=== PATIENT | female | born 1975 | race Caucasian/White ===

== ENCOUNTER 2018-09-04 05:02 | Day surgery (SDC) | payer OTHER ==
[2018-09-01 14:13] VITALS: BMI 27.6
[2018-09-04] MEDS ORDERED: PROPOFOL 20 ML ONE ×4 (07:19→07:43)
[2018-09-04] MEDS ORDERED: MIDAZOLAM HCL 2 MG/2 ML SINGLE DOSE VIAL ONE (07:19)
--- NOTE | 2018-09-04 07:31 | HP ---
Admitting History and Physical - Admission Chief Complaint: Prolonged and heavy menses History of Present Illness: 43 yo Para 2 with h/o prolonged and heavy menses, is pre op for endometrial ablation. History Source: Patient Limitations to Obtaining History: No Limitations - Past Medical History ...LMP: 07/26/18 ...: No ...Para: 2 - Past Surgical History Past Surgical History: Yes: - Smoking History Smoking history: Never smoked Have you smoked in the past 12 months: No - Alcohol/Substance Use Hx Alcohol Use: Yes (social) History of Substance Use: reports: None - Social History Usual Living Arrangement: Yes: With Child History of Recent Travel: No Home Medications - Allergies Allergies/Adverse Reactions: Allergies Allergy/AdvReac Type Severity Reaction Status Date / Time Penicillins Allergy Severe Swelling Verified 09/04/18 06:57 - Home Medications Home Medications: Ambulatory Orders metFORMIN HCL [Glucophage -] 500 mg PO BID #0 01/21/14 Ibuprofen 600 mg PO QID PRN #20 tablet 08/14/16 Atorvastatin Ca [Lipitor] 10 mg PO HS 09/01/18 Review of Systems - Review of Systems Constitutional: reports: No Symptoms Eyes: reports: No Symptoms HENT: reports: No Symptoms Neck: reports: No Symptoms Cardiovascular: reports: No Symptoms Respiratory: reports: No Symptoms Gastrointestinal: reports: No Symptoms Genitourinary: reports: No Symptoms Breasts: reports: No Symptoms Reported Musculoskeletal: reports: No Symptoms Integumentary: reports: No Symptoms Neurological: reports: No Symptoms Endocrine: reports: No Symptoms Hematology/Lymphatic: reports: No Symptoms Psychiatric: reports: No Symptoms Pain Intensity: 0 Physical Examination Vital Signs: Vital Signs Temperature 98.6 F 09/04/18 06:57 Pulse Rate 88 09/04/18 06:57 Respiratory Rate 20 09/04/18 06:57 Blood Pressure 142/89 09/04/18 06:57 O2 Sat by Pulse Oximetry (%) 100 09/04/18 06:54 Constitutional: Yes: Well Nourished Eyes: Yes: Conjunctiva Clear Neck: Yes: Supple Cardiovascular: Yes: Regular Rate and Rhythm Respiratory: Yes: Regular Gastrointestinal: Yes: Normal Bowel Sounds Breast(s): Yes: WNL Integumentary: Yes: WNL Neurological: Yes: Alert, Oriented ...Motor Strength: WNL Psychiatric: Yes: Alert, Oriented Problem List - Problems (1) Menorrhagia Code(s): N92.0 - EXCESSIVE AND FREQUENT MENSTRUATION WITH REGULAR CYCLE Assessment/Plan Menorrhagia Pre op for Hysteroscopic endometrial ablation Consent signed Anesthesia to see patient
[2018-09-04] MEDS ORDERED: SUCCINYLCHOLINE CHLORIDE 200 MG/10 ML VIAL ONE (07:44)
[2018-09-04] MEDS ORDERED: DEXAMETHASONE SOD PHOSPHATE 4 MG/1 ML VIAL ONE (08:04)
[2018-09-04] MEDS ORDERED: KETOROLAC TROMETHAMINE 30 MG/1 ML VIAL ONE (09:04)
--- NOTE | 2018-09-04 09:05 | OP ---
Operative Note - Note: Operative Date: 09/04/18 Pre-Operative Diagnosis: Menorrhagia Operation: Hysteroscopic endometrial ablation attempt Post-Operative Diagnosis: Same as Pre-op Surgeon: Pattie Pichardo Estimated Blood Loss (mls): 20 Operative Report Dictated: Yes
[2018-09-04] MEDS ORDERED: oxyCODONE HCL 5 MG TABLET PO PRN (09:17)
[2018-09-04] MEDS ORDERED: ACETAMINOPHEN 1000 MG/100 ML VIAL (NON FORMULARY) IVPB ONE (09:18)
[2018-09-04] MEDS ORDERED: ACETAMINOPHEN INJECTION 100 ML IVPB ONE (09:19)
--- NOTE | 2018-09-04 09:32 | OP ---
DATE OF OPERATION: 09/04/2018 PREOPERATIVE DIAGNOSIS: Menorrhagia. POSTOPERATIVE DIAGNOSIS: Menorrhagia. PROCEDURE: Hysteroscopic endometrial ablation attempt. SURGEON: Pattie Pichardo MD ANESTHESIA: General. ESTIMATED BLOOD LOSS: 20 mL. Patient was taken to the operating room where general anesthesia was administered. Patient was then placed in lithotomy position. She was then prepped and draped in proper sterile fashion. A weighted speculum was placed in the vagina. The anterior lip of the cervix was grasped with a single-toothed tenaculum then the machine was then activated, and hysteroscopy started. After the hysteroscope was placed in the endometrial canal and polyp noted, and both ostia were visualized, we proceeded with sealing of the cervix by using and 2 wet gauze on the posterior vaginal wall. Then, the button was pressed to initiate ablation, but after several attempts, the procedure had started due to improper sealing. We tried to place Vaseline gauze in the vaginal and on the sheath of the hysteroscope but we unsuccessful in maintaining a proper seal to complete the ablation after several attempts. The procedure was aborted. Patient was taken out of lithotomy position. She was then taken to PACU in stable condition. PATTIE PICHARDO M.D. STEFANIE/[id number]
[2018-09-04] MEDS ORDERED: oxyCODONE HCL 5 MG TABLET ONE (10:04)
[2018-09-04 10:12] VITALS: TEMP 97.6
[2018-09-04 12:29] VITALS: BP 115/77; PULSE 70
== END 2018-09-04 12:35 | disposition home or self-care (01) ==
LOC: JASU-SURG 05:02
PROVIDERS: ATTEND Obstetrics & Gynecology
PROC: 0U5B8ZZ Destruction of Endometrium, Via Natural or Artificial Opening Endoscopic (ICD-10-PCS; principal; 2018-09-04 07:30)
DX: N92.0 Excessive and frequent menstruation with regular cycle (principal); N84.0 Polyp of corpus uteri; Z53.8 Procedure and treatment not carried out for other reasons
CPT/HCPCS: 82962; 94760; J0131

== ENCOUNTER 2019-01-19 10:28 | Emergency (ER) | payer OTHER ==
[2019-01-19 10:51] VITALS: BMI 31.1
--- NOTE | 2019-01-19 11:28 | PDOC ---
Attending Attestation - Resident Resident Name: Craig Liar - ED Attending Attestation I have performed the following: I have examined & evaluated the patient, The case was reviewed & discussed with the resident, I agree w/resident's findings & plan, Exceptions are as noted - HPI HPI: 01/19/19 11:29 43y F hx of DM, HL, fibroids s/p endometrial failed ablation, pending hysterectomy with Dr. Wesley. Pt has had excessive vaginal bleeding since Dec , requiring more than >10 pads / day. endorses lightheadedness and generalized weakness. Pt enodres blood clots, foul oders, fever/chills, dysuria, diarrhea. Pt endorses crampy abd pain cw her fibroids. - Physicial Exam PE: general: well appearing, nad heent: atraumatic, mmm card: rrr, no mrg pulm: cta b/l ext: no edema abd: soft nontender - Medical Decision Making suspect fibroid bleeding the pts CBC noted for anemia to 7.5 the pt does exhibit some mild symptoms of anemia such sa feeling lightheaded when standing no associated cp, or significant grant no active bleedin anant pelvic exam currently discussed risks and benefit of obtaining a blood transfusion (would remove some of the sypmts of lighteheaded/sob) at the risk of tranfusions such as infection/ transfusoin reaction pt declines at this time dw dr. wesley - will plan for outpatient management of fibroids/hysterectomy
[2019-01-19 11:38] LABS: BASO % 0.7 % (0-2.0); EOS % 1.9 % (0-4.5); HEMATOCRIT 22.6 % (32.4-45.2); HEMOGLOBIN 7.5 GM/dL (10.7-15.3); LYMPH % 41.8 % (8-40); MCH 28.6 pg (25.7-33.7); MCHC 33.3 g/dl (32.0-36.0); MEAN CELL VOLUME 85.9 fl (80-96); MEAN PLT VOLUME 8.4 fl (7.5-11.1); MONO % 6.5 % (3.8-10.2); NEUT % 49.1 % (42.8-82.8); PLATELET COUNT 365 K/MM3 (134-434); RBC 2.63 M/mm3 (3.60-5.2); RDW 20.1 % (11.6-15.6); WHITE BLOOD COUNT 6.3 K/mm3 (4.0-10.0)
--- NOTE | 2019-01-19 11:43 | PDOC ---
History of Present Illness - General Chief Complaint: Vaginal Bleeding Stated Complaint: VAGNIAL BLEEDING Time Seen by Provider: 01/19/19 11:00 History Source: Patient Exam Limitations: No Limitations - History of Present Illness Initial Comments: 01/19/19 11:20 43 yo female pmh of DM, HLD, fibroids (s/p failed endometrial ablation Aug 2018 ) pending Hysterectomy (Dr. Pichardo) presents to the ED for excessive vaginal bleeding. Pt states since the beginning of her period Jan 03 she has used greater than 15 pads per day, passing clots and normal colored blood with associated generalized weakness, dizziness and abnormal pain described as similar to past fibroids. Pt admits to heavy cycles in the pst but this is the worst it has been. Denies F/C/N/V, back pain, Cp, SOB Past History - Past Medical History Allergies/Adverse Reactions: Allergies Allergy/AdvReac Type Severity Reaction Status Date / Time Penicillins Allergy Severe Swelling Verified 09/04/18 06:57 Home Medications: Ambulatory Orders metFORMIN HCL [Glucophage -] 500 mg PO BID #0 01/21/14 Ibuprofen 600 mg PO QID PRN #20 tablet 08/14/16 Atorvastatin Ca [Lipitor] 10 mg PO HS 09/01/18 Anemia: Yes Diabetes: Yes Hypercholesterolemia: Yes - Surgical History Cholecystectomy: Yes Orthopedic Surgery: Yes (rt. knee meniscectomy) - Reproductive History (#): 3 Para: 2 Spontaneous : 1 - Immunization History Immunization Up to Date: Yes - Suicide/Smoking/Psychosocial Hx Smoking History: Never smoked Have you smoked in the past 12 months: No Hx Alcohol Use: No Drug/Substance Use Hx: No Substance Use Type: None Hx Substance Use Treatment: No Review of Systems - Review of Systems Constitutional: Yes: Other (generlized weakness). No: Chills, Fever Respiratory: No: Shortness of Breath Cardiac (ROS): No: Chest Pain ABD/GI: Yes: Other (adbmits to abdominal pain from past fibroids. Bloody vaginal Discharge). No: Nausea, Vomiting : No: Burning, Dysuria Musculoskeletal: No: Back Pain Integumentary: No: Pallor Neurological: Yes: Dizziness. No: Numbness, Paresthesia *Physical Exam - Vital Signs Last Vital Signs Temp Pulse Resp BP Pulse Ox 98.2 F 98 H 16 149/79 100 01/19/19 10:48 01/19/19 10:48 01/19/19 10:48 01/19/19 10:48 01/19/19 10:48 - Physical Exam General Appearance: Yes: Nourished, Appropriately Dressed. No: Apparent Distress HEENT: positive: EOMI Respiratory/Chest: positive: Lungs Clear, Normal Breath Sounds Cardiovascular: positive: Regular Rhythm, Regular Rate, S1, S2. negative: Edema , JVD, Murmur Vascular Pulses: Dorsalis-Pedis (R): 4+, Doralis-Pedis (L): 4+ Female Pelvic Exam: positive: normal external exam, cervical os closed, normal adnexa. negative: CMT, discharge, vaginal bleeding Gastrointestinal/Abdominal: positive: Normal Bowel Sounds, Flat, Soft, Tenderness (suprapubic ). negative: Pulsatile Mass, Distended, Guarding, Rebound Musculoskeletal: positive: Normal Inspection Extremity: positive: Normal Capillary Refill, Normal Inspection Integumentary: positive: Normal Color, Dry, Warm Neurologic: positive: Fully Oriented, Alert, Normal Mood/Affect, Normal Response , Motor Strength 5/5 Moderate Sedation - Procedure Monitoring Vital Signs: Procedure Monitoring Vital Signs Temperature 98.2 F 01/19/19 10:48 Pulse Rate 98 H 01/19/19 10:48 Respiratory Rate 16 01/19/19 10:48 Blood Pressure 149/79 01/19/19 10:48 O2 Sat by Pulse Oximetry (%) 100 01/19/19 10:48 ED Treatment Course - LABORATORY CBC & Chemistry Diagram: 01/19/19 11:14 01/19/19 11:14 - RADIOLOGY Radiology Studies Ordered: Category Date Time Status TRANSVAGINAL ULTRASOUND US [US] Stat Ultrasound 01/19/19 11:10 Ordered Medical Decision Making - Medical Decision Making 43 yo female pmh Fibroids and failed uterine embolization presents for excessive vaginal bleeding, dizziness. Vitals WNL Pelvic shows no CMT, no adnexal pain or mass, no blood CBC shows h/h 7.5 with a 2 point drop since Aug 2018 01/19/19 13:[address] Pichardo, discussed case and labs. States pt can continue taking hormone therapy and follow up in clinic tmr. Due to minor symptoms, no blood on pelvic, 06/27 functional, pt does not require blood transfusion at this time. 01/19/19 13:48 transvaginal US shows uterine fibroid and small right ovarian cyst. 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 Continue taking the prescribed hormone therapy. Return to the ER for new or concerning symptoms including but not limited to: severe weakness/dizziness/ loss of consciousness, excessive bleeding that does not stop, high fevers, severe abdominal pain. Thank you - Post Discharge Activity Forms/Work/School Notes: Back to Work
[2019-01-19 11:56] LABS: INR 1.01 (0.83-1.09); PROTHROMBIN TIME (PATIENT) 11.9 SEC (9.7-13.0)
[2019-01-19 11:58] LABS: ACTIVATED PTT 28.7 SECONDS (25.2-36.5)
[2019-01-19 12:01] LABS: ALBUMIN 3.3 g/dl (3.4-5.0); ALK PHOS 57 U/L (45-117); ANION GAP 7 MMOL/L (8-16); BILIRUBIN,TOTAL 0.2 mg/dL (0.2-1); BLOOD UREA NITROGEN 6 mg/dL (7-18); CALCIUM 8.2 mg/dL (8.5-10.1); CHLORIDE 102 mmol/L (98-107); CO2 26 mmol/L (21-32); CREATININE 0.6 mg/dL (0.55-1.3); GLUCOSE,RANDOM 201 mg/dL (74-106); POTASSIUM 4.1 mmol/L (3.5-5.1); SGOT/AST 9 U/L (15-37); SGPT/ALT 30 U/L (13-61); SODIUM 135 mmol/L (136-145); TOT PROT 6.4 g/dl (6.4-8.2)
[2019-01-19] MEDS ORDERED: SODIUM CHLORIDE 1,000 ML IV STA (13:28)
[2019-01-19 14:37] VITALS: BP 117/64; PULSE 87; TEMP 97.9
== END 2019-01-19 14:55 | disposition home or self-care (01) ==
LOC: JER 10:28
PROC: 3E0337Z Introduction of Electrolytic and Water Balance Substance into Peripheral Vein, Percutaneous Approach (ICD-10-PCS; principal; 2019-01-19)
DX: N93.8 Other specified abnormal uterine and vaginal bleeding (principal); D25.9 Leiomyoma of uterus, unspecified; N83.201 Unspecified ovarian cyst, right side; D64.9 Anemia, unspecified; E11.9 Type 2 diabetes mellitus without complications; Z79.84 Long term (current) use of oral hypoglycemic drugs; E78.5 Hyperlipidemia, unspecified
CPT/HCPCS: 36415; 76830-TC; 80053; 84702; 85025; 85610; 85730; 86850; 86900; 86901; 96360; 99283-25; J7030

== ENCOUNTER 2019-02-03 05:29 | Inpatient (IN) | payer OTHER ==
[2019-01-30 17:06] VITALS: BMI 30.1
[2019-02-03] MEDS ORDERED: DEXAMETHASONE SOD PHOSPHATE/PF 10 MG/ML SDV ONE (07:13)
[2019-02-03] MEDS ORDERED: MIDAZOLAM HCL 2 MG/2 ML SINGLE DOSE VIAL ONE ×2 (07:14)
[2019-02-03] MEDS ORDERED: ROPIVACAINE HCL 0.5% 30ML VIAL ONE (07:14)
--- NOTE | 2019-02-03 07:44 | HP ---
Admitting History and Physical - Admission Chief Complaint: Prolonged and heavy menses History of Present Illness: 43 yo Para 2 with h/o prolonged and heavy menses, is pre op for abdominal hysterectomy. She had a previous failed endometrial ablation attempt. History Source: Patient Limitations to Obtaining History: No Limitations - Past Medical History ...LMP: 01/03/19 ...: No ...Para: 2 - Past Surgical History Past Surgical History: Yes: - Smoking History Smoking history: Never smoked Have you smoked in the past 12 months: No - Alcohol/Substance Use Hx Alcohol Use: Yes (SOCIAL) History of Substance Use: reports: None - Social History Usual Living Arrangement: Yes: With Child History of Recent Travel: No Home Medications - Allergies Allergies/Adverse Reactions: Allergies Allergy/AdvReac Type Severity Reaction Status Date / Time Penicillins Allergy Severe Swelling Verified 02/03/19 07:07 - Home Medications Home Medications: Ambulatory Orders metFORMIN HCL [Glucophage -] 500 mg PO BID #0 01/21/14 Ibuprofen 600 mg PO QID PRN #20 tablet 08/14/16 Atorvastatin Ca [Lipitor] 20 mg PO HS 09/01/18 Ascorbic Acid [Vitamin C] 500 mg PO DAILY 01/30/19 Iron 18 mg PO BID 01/30/19 Omeprazole 20 mg PO DAILY 01/30/19 Family Disease History - Family Disease History Family History: Unremarkable Review of Systems - Review of Systems Constitutional: reports: No Symptoms Eyes: reports: No Symptoms HENT: reports: No Symptoms Neck: reports: No Symptoms Cardiovascular: reports: No Symptoms Respiratory: reports: No Symptoms Gastrointestinal: reports: No Symptoms Genitourinary: reports: Vaginal Bleeding Breasts: reports: No Symptoms Reported Integumentary: reports: No Symptoms Neurological: reports: No Symptoms Endocrine: reports: No Symptoms Hematology/Lymphatic: reports: No Symptoms Psychiatric: reports: No Symptoms Pain Intensity: 0 Physical Examination Constitutional: Yes: Well Nourished Eyes: Yes: Conjunctiva Clear HENT: Yes: Atraumatic Neck: Yes: Supple Cardiovascular: Yes: Regular Rate and Rhythm Respiratory: Yes: Regular Gastrointestinal: Yes: Normal Bowel Sounds Assessment/Plan Menorrhagia Anemia Pre op for hysterectomy Consent signed Anesthesia to see patient
[2019-02-03] MEDS ORDERED: PROPOFOL 20 ML ONE ×3 (08:12)
[2019-02-03] MEDS ORDERED: fentaNYL CITRATE 250 MCG/5 ML VIAL ONE (08:12)
[2019-02-03] MEDS ORDERED: ROCURONIUM BROMIDE 50 MG/5 ML VIAL ONE (08:13)
[2019-02-03] MEDS ORDERED: SUCCINYLCHOLINE CHLORIDE 200 MG/10 ML VIAL ONE (08:13)
[2019-02-03] MEDS ORDERED: CLINDAMYCIN PHOSPHATE 900 MG/6 ML VIAL IVPB ONE (08:20)
[2019-02-03] MEDS ORDERED: LIDOCAINE HCL/PF 2% SDV 5ML VIAL ONE (08:39)
[2019-02-03] MEDS ORDERED: DEXAMETHASONE SOD PHOSPHATE 4 MG/1 ML VIAL ONE (08:39)
[2019-02-03] MEDS ORDERED: NEOSTIGMINE METHYLSULFATE 0.5 MG/ML - 10 ML MDV ONE (08:48)
[2019-02-03] MEDS ORDERED: PROMETHAZINE HCL 25 MG/1 ML VIAL IVPB PRN (09:13)
[2019-02-03] MEDS ORDERED: MORPHINE SULFATE 2 MG/ML VIAL IVPUSH PRN (09:13)
[2019-02-03] MEDS ORDERED: ONDANSETRON 4 MG/2 ML VIAL IVPUSH PRN (09:13)
[2019-02-03] MEDS ORDERED: ACETAMINOPHEN INJECTION 100 ML IVPB ONE (09:19)
[2019-02-03] MEDS ORDERED: KETOROLAC TROMETHAMINE 30 MG/1 ML VIAL ONE (09:19)
[2019-02-03] MEDS ORDERED: oxyCODONE HCL 5 MG TABLET PO PRN (09:59)
--- NOTE | 2019-02-03 09:59 | OP ---
Operative Note - Note: Operative Date: 02/03/19 Pre-Operative Diagnosis: Menorrhagia Operation: Supracervical hysterectomy / Bilateral salpingectomy Findings: Enlarged uterus c/w 14 weeks size Post-Operative Diagnosis: Same as Pre-op Surgeon: Pattie Pichardo Bottoming Room Supervisor: Ashley Denise Anesthesia: General Specimens Removed: Uterus / Tubes Estimated Blood Loss (mls): 200
[2019-02-03] MEDS ORDERED: DEXTROSE 5%-LACTATED RINGERS 1,000 ML IV SCH (10:15)
--- NOTE | 2019-02-03 11:26 | SURG ---
Surgery Engine Assembler Note Engine Assembler: Ashley Denise PA-C Date of Service: 02/03/19 Diagnosis: Menorrhagia Procedure: Supracervical hysterectomy / Bilateral salpingectomy I was present for the entirety of the operative procedure. For further detail, please refer to operative report. Visit type - Case Type Case Type: Scheduled - Emergency Emergency Visit: No - New patient This patient is new to me today: Yes Date on this admission: 02/03/19
[2019-02-03] MEDS: IBUPROFEN 800 MG/8 ML IJ IVPB PRN ×2 (14:51→22:31)
[2019-02-03] MEDS ORDERED: ACETAMINOPHEN 325 MG TABLET (FP) PO PRN (22:53)
[2019-02-03] MEDS: LACTATED RINGERS SOLUTION 1,000 ML IV SCH (23:00)
[2019-02-04] MEDS: SIMETHICONE 80 MG TAB.CHEW (FP) PO PRN ×4 (06:16→20:32)
[2019-02-04] MEDS: oxyCODONE HCL 5 MG TABLET PO PRN ×4 (06:16→20:30)
[2019-02-04] MEDS: LACTATED RINGERS SOLUTION 1,000 ML IV SCH (06:20)
--- NOTE | 2019-02-04 08:32 | PROC ---
Procedure Note Procedure: Anesthesia post op note, POD#1, S/P Supracervical hysterectomy / Bilateral salpingectomy under GA. TAP block. Pat seen and examined. VSS. Pain controlled. No apparent post anesthesia complications. Continued care as per primary team.
--- NOTE | 2019-02-04 10:57 | PN ---
Progress Note (short form) - Note Progress Note: 43 yo P2, status post abdominal hysterectomy, seen and evaluated. She c/o headache. PE : Chest : CTA, no rales ABD : + tenderness, dressing cleaned and dried EXT : FROM A/P : Status post hysterectomy Headache Tylenol Metformin Repeat CBC Continue post op care
[2019-02-04] MEDS: metFORMIN HCL 500 MG TABLET (FP) PO SCH ×2 (11:09→17:49)
[2019-02-04] MEDS: ACETAMINOPHEN 325 MG TABLET (FP) PO PRN ×3 (11:15→20:31)
[2019-02-04 12:04] LABS: BASO % 0.4 % (0-2.0); EOS % 0.1 % (0-4.5); HEMATOCRIT 25.8 % (32.4-45.2); HEMOGLOBIN 8.3 GM/dL (10.7-15.3); LYMPH % 26.5 % (8-40); MCH 28.5 pg (25.7-33.7); MCHC 32.3 g/dl (32.0-36.0); MEAN CELL VOLUME 88.4 fl (80-96); MEAN PLT VOLUME 8.2 fl (7.5-11.1); MONO % 8.9 % (3.8-10.2); NEUT % 64.1 % (42.8-82.8); PLATELET COUNT 291 K/MM3 (134-434); RBC 2.92 M/mm3 (3.60-5.2); WHITE BLOOD COUNT 9.5 K/mm3 (4.0-10.0)
[2019-02-04 12:43] LABS: ANION GAP 5 MMOL/L (8-16); BLOOD UREA NITROGEN 6 mg/dL (7-18); CALCIUM 8.4 mg/dL (8.5-10.1); CHLORIDE 106 mmol/L (98-107); CO2 27 mmol/L (21-32); CREATININE 0.5 mg/dL (0.55-1.3); GLUCOSE,RANDOM 129 mg/dL (74-106); POTASSIUM 3.6 mmol/L (3.5-5.1); SODIUM 138 mmol/L (136-145)
--- NOTE | 2019-02-04 17:00 | PATH ---
Surgical Pathology Report Patient Name: BETTY CELESTIN [facility]. Rec. 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 Specimen(s) Received A: UTERUS B: LEFT FALLOPIAN TUBE C: RIGHT FALLOPIAN TUBE Clinical History Menorrhagia Final Diagnosis A. UTERUS, SUPRACERVICAL HYSTERECTOMY: SUPRACERVICAL UTERUS WITH LEIOMYOMA SHOWING FOCAL DEGENERATIVE CHANGE (CYSTIC AND HYALINIZATION), 552 GRAMS. SECRETORY TYPE ENDOMETRIUM. B. LEFT FALLOPIAN TUBE, SALPINGECTOMY: PORTION OF FALLOPIAN TUBE WITH NO DIAGNOSTIC ABNORMALITIES. C. RIGHT FALLOPIAN TUBE, SALPINGECTOMY: PORTION OF FALLOPIAN TUBE WITH PARATUBAL CYST. Electronically Signed Carley Burgos M.D. Gross Description A. Received in formalin labeled "uterus" is a 552 g supracervical portion of uterus without attached cervix. No tubes or ovaries present. The specimen measures 9.5 cm from superior to inferior, 9 cm from anterior to posterior, and 10 cm from left to right. The serosa is fernandez-pink and smooth. The endometrial cavity measures 7.5 cm in length and 4.8 cm from cornu to cornu. The endometrium is fernandez-red and measures up to 0.2 cm in thickness. The myometrium displays a submucosal nodule, measuring 10cm in greatest dimension. The cut surface of the nodule is fernandez and rubbery with whorled architecture, with focal cystic change. No necrosis, discoloration, or hemorrhage present. The remaining myometrium is fernandez-pink and measures up to 1.5 cm in thickness. Cna Gna sections are submitted in 10 cassettes as follows: 1- uterine stump; 2-3: anterior endomyometrium; 4-5: posterior endomyometrium with submucosal nodule; 6-10: submucosa nodule. B. Received fresh labelled "left fallopian tube" is a 1.5 cm long by 0.6 cm in diameter portion of tissue consistent with a portion of fallopian tube with a fimbriated end. Grossly no abnormality identified. Cna Gna sections submitted in one cassette. C. Received fresh labelled "right fallopian tube" is a 2.0 cm long by 1.0 cm in diameter portion of tissue consistent with a portion of fallopian tube with fimbriated end. Grossly no abnormality identified. Cna Gna sections submitted in one cassette. __ BJORN/02/03/2019 jimmy/02/03/2019
[2019-02-04] MEDS ORDERED: metFORMIN HCL 500 MG TABLET (FP) PO ONE (22:00)
[2019-02-05] MEDS: SIMETHICONE 80 MG TAB.CHEW (FP) PO PRN (06:00)
[2019-02-05] MEDS: oxyCODONE HCL 5 MG TABLET PO PRN ×2 (06:00→10:32)
[2019-02-05] MEDS: ACETAMINOPHEN 325 MG TABLET (FP) PO PRN ×2 (06:02→10:32)
[2019-02-05] MEDS: metFORMIN HCL 500 MG TABLET (FP) PO SCH (08:46)
[2019-02-05 11:52] VITALS: BP 120/68; PULSE 81; TEMP 98.7
--- NOTE | 2019-02-06 20:01 | DS ---
Physical Examination Vital Signs: Vital Signs Temperature 98.7 F 02/05/19 10:00 Pulse Rate 81 02/05/19 10:00 Respiratory Rate 18 02/05/19 10:00 Blood Pressure 120/68 02/05/19 10:00 O2 Sat by Pulse Oximetry (%) 100 02/03/19 21:00 Constitutional: Yes: Well Nourished Eyes: Yes: Conjunctiva Clear HENT: Yes: Atraumatic Neck: Yes: Supple Cardiovascular: Yes: Regular Rate and Rhythm Respiratory: Yes: Regular Gastrointestinal: Yes: Normal Bowel Sounds Musculoskeletal: Yes: WNL Extremities: Yes: WNL Neurological: Yes: Alert, Oriented ...Motor Strength: WNL Psychiatric: Yes: Alert, Oriented Labs: CBC, BMP 02/04/19 11:55 02/04/19 11:55 Discharge Summary Reason For Visit: MENORRHAGIA Menorrhagia Procedures: Principal: Subtotal hysterectomy / Bilateral salpingectomy Hospital Course: Routine pos op care No blood transfusion required Condition: Stable - Instructions Diet, Activity, Other Instructions: Regular diet F/U with MD in 2 weeks Referrals: Pattie Pichardo MD [Staff Physician] - Disposition: HOME - Home Medications Comprehensive Discharge Medication List: Ambulatory Orders metFORMIN HCL [Glucophage -] 500 mg PO BID #0 01/21/14 Ibuprofen 600 mg PO QID PRN #20 tablet 08/14/16 Atorvastatin Ca [Lipitor] 20 mg PO HS 09/01/18 Ascorbic Acid [Vitamin C] 500 mg PO DAILY 01/30/19 Iron 18 mg PO BID 01/30/19 Omeprazole 20 mg PO DAILY 01/30/19
--- NOTE | 2019-02-09 16:32 | OP ---
DATE OF OPERATION: 02/03/2019 PREOPERATIVE DIAGNOSIS: Menorrhagia. POSTOPERATIVE DIAGNOSIS: Menorrhagia, adenomyosis. SURGEON: Pattie Pichardo MD CONSTRUCTION EQUIPMENT MECHANIC: PRIYA Hall ANESTHESIA: General. COMPLICATION: None. ESTIMATED BLOOD LOSS: 200 mL. PROCEDURE: Subtotal hysterectomy and bilateral salpingectomy. DESCRIPTION: Patient was taken to the operating room, where general anesthesia was administered. Patient was then prepped and draped in proper sterile fashion. A Pfannenstiel skin incision was made approximately 2 cm above the symphysis pubis and extended sharply to the rectus fascia. The fascia was then incised bilaterally with the Bovie cautery. The muscles of the anterior abdominal wall were in the midline by sharp and blunt dissection. The peritoneum was grasped between 2 pickups, elevated, and entered sharply with the Metzenbaum scissors. The pelvis was examined and an enlarged uterus was then noted; the uterus was consistent with 14 weeks size. The bowel was packed with moist laparotomy sponges. Two Pean clamps were placed on the cornua and used for retraction. The round ligaments on both sides were clamped using the LigaSure device, burned and cut. The anterior leaf of the broad ligament was incised along the bladder reflection to the midline from both sides. The bladder was then gently dissected off the lower uterine segment and the cervix with a sponge stick. The uteroovarian ligaments on both sides were then clamped with the LigaSure device, burned and cut. The uterine arteries were skeletonized bilaterally, clamped and burned with the LigaSure device. Hemostasis was assured. Then the uterus was then amputated. The cervical stump was closed with interrupted sutures of 0 Vicryl. Hemostasis was assured and the pelvis was irrigated copiously with warm normal saline. All laparotomy sponges and instruments were removed from the abdomen. Interceed was placed over the cervical stump. The fascia was closed with running 0 Vicryl, and the skin was closed in a subcuticular fashion using 3 -0 Vicryl. The patient was taken to PACU awake in stable condition. Crescencio MORATAYA/[id number] MTDD
== END 2019-02-05 12:00 | disposition home or self-care (01) | DRG 513 ==
LOC: JSAMEDAYSX 05:29 → J3W 12:38
PROVIDERS: ADMIT Obstetrics & Gynecology; ATTEND Obstetrics & Gynecology
PROC: 0UB70ZX Excision of Bilateral Fallopian Tubes, Open Approach, Diagnostic (ICD-10-PCS; 2019-02-03)
PROC: 0UT90ZL Resection of Uterus, Supracervical, Open Approach (ICD-10-PCS; principal; 2019-02-03 08:00)
DX: N92.0 Excessive and frequent menstruation with regular cycle (principal); N80.0 Endometriosis of uterus; D64.9 Anemia, unspecified; R51 Headache; K21.9 Gastro-esophageal reflux disease without esophagitis; E11.9 Type 2 diabetes mellitus without complications; E66.9 Obesity, unspecified; Z68.30 Body mass index [BMI] 30.0-30.9, adult
CPT/HCPCS: 36415; 80048; 82962; 84703; 85025; 88302-TC; 88305-TC; 94010; 94760; J0131

== ENCOUNTER 2023-03-02 23:13 | Emergency (ER) | payer OTHER ==
[2023-03-02 23:19] VITALS: PULSE 82; RESP 20; TEMP 97.8; BMI 31.1
[2023-03-02] MEDS ORDERED: DIPHTH,PERTUSS(ACELL),TET 0.5 ML DISP.SYRIN IM ONE ×2 (23:47→23:59)
[2023-03-02] MEDS ORDERED: ACETAMINOPHEN 500 MG TABLET (FP) PO ONE (23:53)
[2023-03-02] MEDS ORDERED: ACETAMINOPHEN 500 MG TABLET (FP) ONE (23:58)
[2023-03-03] MEDS ORDERED: DALBAVANCIN HCL 1,500 MG in DEXTROSE 5%-WATER - 500 ML IVPB ONE (01:48)
[2023-03-03] MEDS ORDERED: DALBAVANCIN HCL 500 MG VIAL (RESTRICTED TO ID ONLY) IVPB ONE ×2 (01:51→03:27)
[2023-03-03] MEDS ORDERED: CLINDAMYCIN 600MG PREMIX IVPB 600 MG/50 ML BAG IVPB ONE ×2 (02:16→02:33)
[2023-03-03] MEDS ORDERED: KETOROLAC TROMETHAMINE 30 MG/1 ML VIAL ONE (03:55)
[2023-03-03 03:56] LABS: BASO % 0.4 % (0-2.0); EOS % 0.5 % (0-4.5); HEMATOCRIT 37.5 % (32.4-45.2); HEMOGLOBIN 12.4 GM/dL (10.7-15.3); MCH 28.8 pg (25.7-33.7); MCHC 33.1 g/dl (32.0-36.0); MEAN CELL VOLUME 87.1 fl (80-96); MEAN PLT VOLUME 9.2 fl (7.5-11.1); MONO % 6.7 % (3.8-10.2); NEUT % 57.4 % (42.8-82.8); PLATELET COUNT 334 10^3/uL (134-434); RDW 13.4 % (11.6-15.6); WHITE BLOOD COUNT 11.3 K/mm3 (4.0-10.0)
[2023-03-03] MEDS ORDERED: KETOROLAC TROMETHAMINE 30 MG/1 ML VIAL IVPUSH ONE (03:57)
[2023-03-03 03:58] LABS: CHLORIDE 102 mmol/L (98-107); SODIUM 134 mmol/L (136-145)
[2023-03-03 04:00] LABS: CALCIUM 9.8 mg/dL (8.5-10.1)
[2023-03-03 04:01] LABS: ALBUMIN 3.7 g/dl (3.4-5.0); ANION GAP 8 MMOL/L (8-16); BLOOD UREA NITROGEN 15.7 mg/dL (7-18); CO2 25 mmol/L (21-32); GLUCOSE,RANDOM 204 mg/dL (74-106)
[2023-03-03 04:03] LABS: CREATININE 0.6 mg/dL (0.55-1.3)
[2023-03-03 04:04] LABS: SGOT/AST 17 U/L (15-37); SGPT/ALT 43 U/L (13-61)
[2023-03-03 04:05] LABS: BILIRUBIN,TOTAL 0.2 mg/dL (0.2-1); TOT PROT 7.4 g/dl (6.4-8.2)
[2023-03-03 04:07] LABS: ALK PHOS 67 U/L (45-117)
[2023-03-03 04:25] VITALS: BP 146/75
[2023-03-03 04:49] LABS: ERYTHROCYTE SEDIMENTATION RATE 13 mm/hr (0-20)
== END 2023-03-03 04:26 | disposition home or self-care (01) ==
LOC: JER 23:13
PROC: 3E03329 Introduction of Other Anti-infective into Peripheral Vein, Percutaneous Approach (ICD-10-PCS; principal; 2023-03-03)
PROC: 3E03329 Introduction of Other Anti-infective into Peripheral Vein, Percutaneous Approach (ICD-10-PCS; 2023-03-03)
PROC: 3E0333Z Introduction of Anti-inflammatory into Peripheral Vein, Percutaneous Approach (ICD-10-PCS; 2023-03-03)
PROC: 3E0234Z Introduction of Serum, Toxoid and Vaccine into Muscle, Percutaneous Approach (ICD-10-PCS; 2023-03-03)
DX: S61.412A Laceration without foreign body of left hand, initial encounter (principal); W26.0XXA Contact with knife, initial encounter; Z20.822 Contact with and (suspected) exposure to COVID-19
CPT/HCPCS: 36415; 73130-TC-LT-FY; 80053; 85025; 85651; 86140; 90471; 90715; 96365; 96366; 96375; 99284-25; C9803-CS; J0875; U0003; U0005

== ENCOUNTER 2023-03-06 12:49 | Day surgery (SDC) | payer OTHER ==
[2023-03-05 14:19] VITALS: BMI 31.1
[2023-03-06] MEDS ORDERED: ONDANSETRON 4 MG/2 ML VIAL ONE (13:06)
[2023-03-06] MEDS ORDERED: DEXAMETHASONE SOD PHOSPHATE 4 MG/1 ML VIAL ONE (13:06)
[2023-03-06] MEDS ORDERED: ceFAZolin SODIUM 1 GM VIAL ONE (13:06)
[2023-03-06] MEDS ORDERED: LIDOCAINE HCL/PF 2% SDV 5ML VIAL ONE (13:06)
[2023-03-06] MEDS ORDERED: PROPOFOL 20 ML ONE (13:07)
[2023-03-06] MEDS ORDERED: MIDAZOLAM HCL 2 MG/2 ML SINGLE DOSE VIAL ONE (13:07)
[2023-03-06] MEDS ORDERED: ONDANSETRON 4 MG/2 ML VIAL IVPUSH PRN (13:27)
[2023-03-06] MEDS ORDERED: oxyCODONE HCL 5 MG TABLET PO PRN ×2 (13:27)
[2023-03-06] MEDS ORDERED: LACTATED RINGERS SOLUTION 1,000 ML IV SCH (13:30)
[2023-03-06] MEDS ORDERED: oxyCODONE HCL 5 MG TABLET PO ONE (13:55)
[2023-03-06] MEDS ORDERED: CLINDAMYCIN 600MG PREMIX IVPB 600 MG/50 ML BAG IVPB ONE (14:00)
[2023-03-06] MEDS ORDERED: BUPIVACAINE HCL/PF 2.5 MG/ML - 30 ML VIAL IJ ONE (14:27)
[2023-03-06] MEDS ORDERED: FENTANYL CITRATE/PF 50 MCG/ML VIAL ONE (15:25)
[2023-03-06] MEDS ORDERED: oxyCODONE HCL 5 MG TABLET ONE (15:55)
[2023-03-06 15:59] VITALS: RESP 16; TEMP 98.4
[2023-03-06 16:34] VITALS: BP 144/89; PULSE 94
== END 2023-03-06 16:34 | disposition home or self-care (01) ==
LOC: FASU 12:49
PROVIDERS: ATTEND Orthopaedic Surgery Hand Surgery
PROC: 0LQ80ZZ Repair Left Hand Tendon, Open Approach (ICD-10-PCS; principal; 2023-03-06 14:18)
DX: S61.412A Laceration without foreign body of left hand, initial encounter (principal); S66.121A Laceration of flexor muscle, fascia and tendon of left index finger at wrist and hand level, initial encounter; X58.XXXA Exposure to other specified factors, initial encounter; Y93.9 Activity, unspecified; Y92.9 Unspecified place or not applicable
CPT/HCPCS: 82962; 94760

== ENCOUNTER 2025-04-08 13:40 | Emergency (ER) | payer OTHER ==
[2025-04-08 13:50] VITALS: BP 140/89; PULSE 110; RESP 16; TEMP 97.6; BMI 30.1
[2025-04-08] MEDS ORDERED: METOCLOPRAMIDE HCL INJECTION 10 MG/2 ML VIAL ONE (14:09)
[2025-04-08] MEDS ORDERED: ACETAMINOPHEN INJECTION 100 ML ONE (14:10)
[2025-04-08] MEDS ORDERED: FAMOTIDINE 20 MG/50 ML IVPB 20 MG/50 ML MG IVPB ONE (14:10)
[2025-04-08] MEDS: ACETAMINOPHEN 1000 MG/100 ML BAG IVPB ONE (15:05)
[2025-04-08] MEDS: FAMOTIDINE 20 MG/50 ML IVPB 20 MG/50 ML MG IVPB ONE (15:06)
[2025-04-08] MEDS: METOCLOPRAMIDE HCL INJECTION 10 MG/2 ML VIAL IVPUSH ONE (15:06)
[2025-04-08] MEDS: LACTATED RINGERS SOLUTION 1000 ML INFUS.BAG IV ONE (15:06)
[2025-04-08] MEDS: ONDANSETRON 4 MG/2 ML VIAL IVPUSH ONE (15:06)
[2025-04-08 15:10] LABS: ABSOLUTE IMMATURE GRANULOCYTES 0.07 x10^3/uL (0.0-0.031); BASOPHILS # 0.07 x10^3/uL (0.01-0.08); EOSINOPHIL % 0.1 % (0.7-5.8); EOSINOPHILS # 0.01 x10^3/uL (0.04-0.36); HEMOGLOBIN 16.9 g/dL (11.2-15.7); MCHC 31.9 g/dl (32.2-35.5); MEAN CELL VOLUME 85.9 fl (79.4-94.8); MEAN PLT VOLUME 10.5 fl (9.4-12.3); MONOCYTE # 0.36 x10^3/uL (0.24-0.86); MONOCYTE % 2.7 % (4.7-12.5); PLATELET COUNT 344 x10^3/uL (182-369); RDW 13.6 % (12.2-17.1)
[2025-04-08 15:27] LABS: POTASSIUM 4.1 mmol/L (3.5-5.1)
[2025-04-08 15:29] LABS: CALCIUM 10.5 mg/dL (8.5-10.1)
[2025-04-08 15:30] LABS: ALBUMIN 5.1 g/dl (3.4-5.0); BLOOD UREA NITROGEN 16.9 mg/dL (7-18)
[2025-04-08 15:33] LABS: CREATININE 0.8 mg/dL (0.55-1.3)
[2025-04-08 15:34] LABS: BILIRUBIN,TOTAL 0.4 mg/dL (0.2-1); TOT PROT 9.4 g/dl (6.4-8.2)
== END 2025-04-08 21:17 | disposition home or self-care (01) ==
LOC: JER 13:40
PROC: 3E033GC Introduction of Other Therapeutic Substance into Peripheral Vein, Percutaneous Approach (ICD-10-PCS; principal; 2025-04-08)
PROC: 3E033NZ Introduction of Analgesics, Hypnotics, Sedatives into Peripheral Vein, Percutaneous Approach (ICD-10-PCS; 2025-04-08)
PROC: 3E033GC Introduction of Other Therapeutic Substance into Peripheral Vein, Percutaneous Approach (ICD-10-PCS; 2025-04-08)
DX: K52.9 Noninfective gastroenteritis and colitis, unspecified (principal); R11.2 Nausea with vomiting, unspecified; R68.83 Chills (without fever); R10.13 Epigastric pain; R00.2 Palpitations
CPT/HCPCS: 36415; 71046-TC-FY; 74177-TC; 80053; 82962; 83690; 84484; 84703; 85025; 93005; 93010; 99285-25; J0131

== ENCOUNTER 2025-06-15 08:09 | Day surgery (SDC) | payer OTHER ==
[2025-05-07 11:52] VITALS: BMI 25.7
[2025-06-15 08:26] VITALS: PULSE 75; RESP 18
[2025-06-15 12:57] VITALS: BP 130/78; TEMP 97.8
== END 2025-06-15 10:34 | disposition home or self-care (01) ==
LOC: FASU-ENDO 08:09
PROVIDERS: ATTEND Internal Medicine Gastroenterology
PROC: 0DJD8ZZ Inspection of Lower Intestinal Tract, Via Natural or Artificial Opening Endoscopic (ICD-10-PCS; principal; 2025-06-15 09:38)
DX: Z12.11 Encounter for screening for malignant neoplasm of colon (principal); K64.8 Other hemorrhoids
CPT/HCPCS: 82962